=== PATIENT | male | born 1965 | race Caucasian/White ===

== ENCOUNTER 2021-10-17 04:55 | Emergency (ER) | payer MEDICAID, OTHER, SELFPAY ==
[~2021-10-17] VITALS: Ht 188 cm; Wt 92.1 kg
[2021-10-17 04:55] VITALS: BP 164/105
[~2021-10-17 04:55] MED LIST: ACET-1182 PO; ALPR0.252 GT; AMIO200T66 PO; ASPI81CT95 PO; ATOR10TA GT; CLOP75TA55 PO; DOCU250S72 GT; DOXA2TAB1 GT; FURO-572 GT; LEVE1000 PO; METO25TA PO; OXYC5TAB4 GT; PANT40EC PO; QUET100T GT; SENN-72 GT; [UNRECOGNIZED DRUG - CODE] GT
--- NOTE | 2021-10-17 04:55 | NUR ---
[facility] VIA GURNEY TO BED 04.
--- NOTE | 2021-10-17 05:16 | NUR ---
PT YOSVANY HAYES FROM [facility], PT REPORTED TO HAVE TOOK OUT HIS GTUBE AND FROM HIS IV FROM HIS RT ARM. PT AXO X 2 CONFUSED AT TIMES. PT HAS HX OF MS,CVA,CHF,ACUTE RESPIRTORY FALIURE, AND ANXIETY. MEDICATIONS ARE UNKNOWN AND NKA
--- NOTE | 2021-10-17 06:51 | NUR ---
20 CC OF CONTRAST PUSHED INTO GTUBE.
--- NOTE | 2021-10-17 06:52 | NUR ---
X RAY AT BEDSIDE.
--- NOTE | 2021-10-17 07:13 | NUR ---
REPORT GIVEN TO CESARIO BOYD FOR TRANSFER OF CARE.
--- NOTE | 2021-10-17 09:22 | NUR ---
REPORT CALLED BACK TO FACILITY, RAY BOYD IP LITIGATION ASSOCIATE GIVEN REPORT.
[2021-10-17] MEDS ORDERED: levETIRAcetam 100 MG/ML ORASYR GT SCH (09:50)
[2021-10-17] MEDS ORDERED: LORazepam 1 MG TAB GT ONE (09:50)
[2021-10-17] MEDS ORDERED: HALOPERIDOL 10 MG/5 ML UDC GT SCH (09:50)
[2021-10-17] MEDS ORDERED: HALOPERIDOL IM 5 MG/ML VIAL IM ONE (10:00)
[2021-10-17] MEDS ORDERED: traZODone 50 MG TAB ONE (10:04)
[2021-10-17] MEDS ORDERED: traZODone 50 MG TAB GT SCH (10:20)
[2021-10-17 10:49] VITALS: BP 136/110
--- NOTE | 2021-10-17 10:49 | NUR ---
TRANSPORT HERE FOR PT ROUTE [facility]
--- NOTE | 2021-10-17 10:50 | NUR ---
Patient discharged with v/s stable. Written and verbal after care instructions given and explained. [place] with [facility] [place] [facility] [place] Advised to follow up with PMD.
[2021-10-18] MEDS ORDERED: traZODone 50 MG TAB GT SCH ×2 (09:00)
== END 2021-10-17 10:50 ==
LOC: MED 04:55
DX: K94.23 Gastrostomy malfunction (principal); I10 Essential (primary) hypertension; Z86.73 Personal history of transient ischemic attack (TIA), and cerebral infarction without residual deficits; Z87.448 Personal history of other diseases of urinary system; Z79.899 Other long term (current) drug therapy; Z79.01 Long term (current) use of anticoagulants; Z79.82 Long term (current) use of aspirin
CPT/HCPCS: 43762; 74240; 96372; 99284; J1630

== ENCOUNTER 2021-10-27 16:10 | Emergency (ER) | payer OTHER ==
[~2021-10-27] VITALS: Ht 185.4 cm; Wt 113.4 kg
[2021-10-27 16:29] VITALS: BP 155/76
--- NOTE | 2021-10-27 16:40 | NUR ---
PT BIB BLS RUN FROM [facility] FOR GTUBE REPLACEMENT. PT PULLED OUT G TUBE YESTERDAY. PT GCS 12 NORMAL FOR PT.
--- NOTE | 2021-10-27 17:30 | NUR ---
GTUBE PLACED BY DR ESTEVEZ AT BEDSIDE, PENDING XRAY CONFIRMATION.
--- NOTE | 2021-10-27 19:03 | NUR ---
PT PENDING TX BACK TO SNF, SOFY, DAUGHTER, UPDATED ON PLAN OF CARE
--- NOTE | 2021-10-27 20:00 | NUR ---
PT'S DIAPER CHANGED AND REPOSITIONED.
--- NOTE | 2021-10-27 21:00 | NUR ---
Patient appears to be resting comfortably in bed. Vital Signs within normal limits. Respirations even and unlabored. BOTH BED RAILS UP AND BED AT LOWEST POSITION.
--- NOTE | 2021-10-27 22:30 | NUR ---
PT REPOSTION CHANGED AND PLACED IN HIGH FOWLERS POSITION.
[2021-10-28] MEDS ORDERED: amLODIPine 5 MG TAB PO ONE (00:20)
[2021-10-28] MEDS ORDERED: CRUSHER, PILL MC ONE (00:26)
--- NOTE | 2021-10-28 00:30 | NUR ---
PT ADMINISTERED NORVASC FOR HIGH BP.
--- NOTE | 2021-10-28 00:30 | NUR ---
PT ADMINISTERED NORVASC FOR HIGH BP THROUGH GTUBE.
--- NOTE | 2021-10-28 02:36 | NUR ---
PT WAS REPOSITIONED, CHANGED INTO A NEW GOWN AND DIAPER WAS CHANGED.
--- NOTE | 2021-10-28 04:31 | NUR ---
PT REPOSITIONED AND PUT INTO SEMI FOWLERS.
--- NOTE | 2021-10-28 05:17 | NUR ---
Patient appears to be resting comfortably in bed. Vital Signs within normal limits. Respirations even and unlabored. BED RAILS UP AND BED AT LOWEST POSITION.
--- NOTE | 2021-10-28 06:38 | NUR ---
REPOSITIONED PT AND UPDATED VITALS.
--- NOTE | 2021-10-28 07:06 | NUR ---
Patient appears to be resting comfortably in bed. Respirations even and unlabored. BOTH BED RAILS DOWN AND BED AT LOWEST POSITION.
--- NOTE | 2021-10-28 07:53 | NUR ---
PT MOVED TO ER BED 9
[2021-10-28 08:41] VITALS: BP 152/99
--- NOTE | 2021-10-28 08:41 | NUR ---
Patient discharged with v/s stable. Written and verbal after care instructions given and explained. Patient alert, oriented and verbalized understanding of instructions. Ambulance Transport with by caregiver. All questions addressed prior to discharge. ID band removed. Patient advised to follow up with PMD.NO Rx given. Patient educated on indication of medication including possible reaction and side effects. Opportunity to ask questions provided and answered.
== END 2021-10-28 08:41 | disposition home or self-care (01) ==
LOC: MED 16:10
DX: K94.23 Gastrostomy malfunction (principal); I10 Essential (primary) hypertension; Z79.899 Other long term (current) drug therapy; Z86.73 Personal history of transient ischemic attack (TIA), and cerebral infarction without residual deficits; Z79.82 Long term (current) use of aspirin; Z98.890 Other specified postprocedural states
CPT/HCPCS: 43762; 74240; 99285; Q0092